=== PATIENT | male | born 1970 | race Caucasian/White ===

== ENCOUNTER 2023-09-08 07:44 | Day surgery (SDC) | payer OTHER ==
[~2023-09-08] VITALS: Ht 172.7 cm; Wt 158.3 kg
[2023-09-08] MEDS ORDERED: MEPERIDINE 100 MG INJ. 100 MG/ML VIAL ONE (08:23)
[2023-09-08] MEDS ORDERED: MIDAZOLAM HCL 5 MG/5 ML VIAL ONE (08:23)
[2023-09-08 10:41] VITALS: O2SAT 98
[2023-09-08 11:21] VITALS: BP_SYST 89; PULSE 85; RESP 18
[2023-09-08] MEDS ORDERED: LISI40TA13 PO (11:55)
== END 2023-09-09 10:25 | disposition home or self-care (01) ==
LOC: SDS 07:44 → SMU 07:47 → SDS 09-09 10:25
PROVIDERS: ATTEND Internal Medicine
DX: K52.9 Noninfective gastroenteritis and colitis, unspecified (principal); K63.5 Polyp of colon; R19.4 Change in bowel habit; K64.0 First degree hemorrhoids; I10 Essential (primary) hypertension; E11.9 Type 2 diabetes mellitus without complications; E78.5 Hyperlipidemia, unspecified; Z79.84 Long term (current) use of oral hypoglycemic drugs; Z79.899 Other long term (current) drug therapy
CPT/HCPCS: 45380; 45385; 99152; 82948; 88305; 99153; G0378; J2250; J2175